=== PATIENT | female | born 1970 ===

== ENCOUNTER 2017-04-20 15:12 | Emergency (ER) | payer SELFPAY ==
--- NOTE | 2017-04-20 16:06 | RAD ---
RADIOGRAPH CHEST 1 VIEW: Date: 04/20/17 Time: 3:35 p.m. HISTORY: 47-year-old female with cough and dyspnea for six days. COMPARISON: None. FINDINGS: There are patchy and streaky pulmonary opacities at the bases of the bilateral lungs. The small patch y opacity at the right base is more confluent than the ones on the left. The cardiomediastinal silhou ette is normal. There is hyperinflation suggestive of COPD. No pulmonary edema or pneumothorax. IMPRESSION: 1. Bibasilar small infiltrates: evidence for bilateral pneumonia. 2. Emphysema. RONAN [] POS: [facility]
[2017-04-20 16:18] LABS: Bilirubin Small (Negative); Blood, Urine Negative (Negative); Clarity CLEAR (Clear); Glucose, Urine (Dipstick) Negative (Negative); Leukocyte Negative (Negative); Nitrite Negative (Negative); Protein, Urine (Dipstick) 30 mg/dL (Neg-Trace); pH, Urine 5.5 (5.0-9.0)
[2017-04-20 16:21] LABS: Bacteria/HPF None Seen HPF (None Seen)
[2017-04-20 16:23] LABS: Pathc Cast-AUWi Flag 2.98 (0-2.49)
[2017-04-20 16:23] LABS: #Lymphocytes 1.3 thou/uL (1.20-3.40); #Monocytes 0.2 thou/uL (0.11-0.59); #Neutrophils 5.1 thou/uL (1.40-6.50); %Basophils 0.1 % (0.0-1.0); %Eosinophils 0.1 % (0.0-10.0); %Lymphocytes 19.5 % (21.0-51.0); %Monocytes 3.1 % (0.0-10.0); %Neutrophils 77.3 % (42.0-75.0); Hemoglobin 15.1 g/dL (12.0-16.0); Mean Corpuscular HGB CONC 33.9 g/dL (32.0-36.0); Mean Corpuscular Volume 88.6 fl (81.0-99.0); Mean Platelet Volume 8.3 fL (7.4-10.4); Platelet Count 150 thou/uL (130-400); RBC Distribution Width 12.3 % (11.5-14.5); Red Blood Cell (RBC) Count 5.04 mill/uL (4.20-5.40); White Blood Cell (WBC) Count 6.6 thou/uL (4.8-10.8)
[2017-04-20] MEDS ORDERED: Dexamethasone 10 MG/ML VIAL ONE (16:25)
[2017-04-20 16:33] LABS: Specific Gravity, Urine 1.049 (1.002-1.036)
[2017-04-20 16:34] LABS: RBC/HPF 0-3 HPF (0-3)
[2017-04-20 16:35] LABS: Hyaline Casts/LPF 0-3 HYALINE CAST LPF (0-3 Hyaline); Other Casts/LPF None Seen LPF (0-3 Hyaline)
[2017-04-20 16:50] LABS: ALT (SGPT) 25 U/L (8-55); AST (SGOT) 34 U/L (5-34); Albumin 3.7 g/dL (3.5-5.0); Alkaline Phosphatase 60 U/L (40-150); Anion Gap 13 mmol/L (10-20); BUN (Urea Nitrogen) 13 mg/dL (7.0-18.7); Bilirubin, Total 0.5 mg/dL (0.2-1.2); CKMB 0.6 ng/mL (0-6.6); Calc. Creatinine Clearance 0 mL/min (70-130); Calcium 8.7 mg/dL (7.8-10.44); Carbon Dioxide 23 mmol/L (22-29); Chloride 103 mmol/L (98-107); Estimated GFR-MDRD 82; Globulin 3.2 g/dL (2.4-3.5); Glucose 86 mg/dL (70-105); Potassium 3.2 mmol/L (3.5-5.1); Protein, Total 6.9 g/dL (6.0-8.3); Sodium 136 mmol/L (136-145); Troponin I Less than 0.010 ng/mL (< 0.028)
== END 2017-04-20 18:22 | disposition home or self-care (01) ==
LOC: ERS 15:12
DX: J18.9 Pneumonia, unspecified organism (principal); J44.1 Chronic obstructive pulmonary disease with (acute) exacerbation; F17.210 Nicotine dependence, cigarettes, uncomplicated
CPT/HCPCS: 71045; 80053; 81003; 81015; 82553; 83605; 83735; 83880; 84484; 85025; 85379; 87804; 93005; 94640; 96360; 99406; J1100; J7620